=== PATIENT | female | born 1970 | race Two or more races ===

== ENCOUNTER 2016-09-08 15:14 | Emergency (ER) | payer SELFPAY ==
--- NOTE | 2016-09-20 10:17 | ER ---
ADMIT: 09/08/2016 RM/LOC: ER [facility] MR#: [id number] [address] [facility] [id number] [place], [place] [id number] DENISE WISE [address] [address] Emergency Room Report SEX: F AGE: 45 : 1970 DATE: 09/08/2016 ADDENDUM: CHIEF COMPLAINT: Cough, nausea, and vomiting. HISTORY OF PRESENT ILLNESS: This is a 45-year-old female, who was around her granddaughter last week that had influenza for the last 3 days. She has had cough, vomiting, and fevers, it is very probable that she has influenza and I told her go home, push fluids, and use Tylenol and Motrin that she could alternate every 3 hours to keep her fever down. She is in no respiratory distress. In fact, her sats are 100% on room air. She is not dehydrated at this time. No real positive findings on physical exam. CLINICAL IMPRESSION: Viral syndrome with exposure to influenza. ARELY Christian / Carlos Eduardo Rasmussen MD / pema JOB #: [id number] CC: Carlos Eduardo Rasmussen MD, Attending Physician Leroy Fong MD, Family Physician
== END 2016-09-08 16:10 | disposition home or self-care (01) ==
LOC: ER 15:14
DX: B34.9 Viral infection, unspecified (principal); Z20.9 Contact with and (suspected) exposure to unspecified communicable disease